=== PATIENT | female | born 1985 ===

== ENCOUNTER 2024-07-21 12:24 | Outpatient (CLI) | payer OTHER, SELFPAY ==
--- NOTE | ~2024-07-21 | XR_ITS ---
EXAM: XR knee LT 3V DATE: 07/21/2024 12:43 HISTORY: M25.562 - Pain in left knee . COMPARISON: None available. FINDINGS: Normal mineralization. No fracture or dislocation. No lytic or blastic lesion. Mild medial and lateral joint space narrowing. Mild tricompartmental osteophytosis. No erosion or periosteal patrice nge. Soft tissues within normal limits. IMPRESSION: Mild tricompartmental left knee osteoarthritis. Reviewed, dictated and finalized at location K. TABLE SPECKER
== END 2024-07-21 12:25 | disposition home or self-care (01) ==
LOC: GOSHIMG 12:28
PROVIDERS: PCP Nurse Practitioner Family; Visit Provider Nurse Practitioner Family
DX: M17.12 Unilateral primary osteoarthritis, left knee (principal); M25.562 Pain in left knee
CPT/HCPCS: 73562

== ENCOUNTER 2024-07-31 11:30 | Outpatient (CLI) | payer OTHER, SELFPAY ==
--- NOTE | ~2024-07-31 | MR_ITS ---
EXAMINATION: MR knee LT wo con DATE: 07/31/2024 12:05 INDICATION: Left lower leg injury TECHNIQUE: Magnetic resonance imaging (MRI) of the left knee was performed without intravenous contra st. Sequences included coronal PD-weighted FSE, coronal PD-weighted FS FSE, sagittal T2-weighted FSE , sagittal PD-weighted FS FSE and axial PD weighted fat saturated FSE. COMPARISON: None. FINDINGS: Medial compartment: Medial meniscus is normal. Shallow chondral surface regularity along the anterior weightbearing media l femoral condyle. Lateral compartment: Lateral meniscus is normal. Articular cartilage is normal. Patellofemoral compartment: Partial-thickness chondral ulceration and fissuring at the trochlea centered along the trochlear groo ve. Tiny focus of underlying edema-like signal change at the central aspect of the lateral trochlea. Mild partial-thickness chondral fissuring without degenerative subchondral changes at the patellar ap ical ridge. Ligaments and tendons: Anterior and posterior cruciate ligaments are normal. The medial collateral ligament and fibular dmitry ateral ligament complex are normal. The extensor mechanism is normal. The visualized medial and later al hamstring tendons as well as the iliotibial band are normal. Fluid: Physiologic amount of fluid in the joint space. No loose osteochondral bodies identified. Osseous/other: 7 mm lateral patellar subluxation. Alignment is otherwise normal. There is red marrow reexpansion in the metaphyseal and visualized diaphyseal regions of the distal femur, proximal tibia and fibula. No fracture or pathologic marrow replacing process. There is edema along the anterior margin of the rodriguez llar tendon without discrete bursal fluid collection potentially related to contusion given the histo ry of trauma. Simultaneous varicosity anterior to the knee. IMPRESSION: 1. 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 2. Normal menisci and stabilizing ligaments of the knee. Reviewed, dictated and finalized at location A. H [employer] SUPERVIS[employer] IMPRESSION: 1. Mild tricompartmental osteoarthritis with moderate to high-grade trochlear c hondral malacia and moderate grade chondral malacia along the patella and weigh tbearing portions of the medial and lateral femoral condyles. 2. Normal menisci and stabilizing ligaments of the knee.
== END 2024-07-31 11:31 | disposition home or self-care (01) ==
LOC: GOSHIMG 11:30
PROVIDERS: PCP Nurse Practitioner Family; Visit Provider Nurse Practitioner Family
DX: M17.12 Unilateral primary osteoarthritis, left knee (principal); M94.262 Chondromalacia, left knee
CPT/HCPCS: 73721

== ENCOUNTER 2024-08-14 17:39 | Emergency (ER) | payer OTHER, SELFPAY ==
--- NOTE | 2024-08-14 17:44 | ED.URI ---
HPI - URI/Sore Throat General Chief Complaint: Upper Respiratory Infection Stated Complaint: Cough,Congestion,headache,vomitting Time Seen by Provider: 08/14/24 17:55 Source: patient Mode of arrival: ambulatory Limitations: no limitations History of Present Illness HPI Narrative: Efren is a 38-year-old female patient presenting to the clinic today with complaints of cough, congestion, headache, body aches, nausea, vomiting. She reports symptoms started 3 days ago. Denies any fever or chills. Denies any shortness of breath. Does have some chest discomfort with cough. MD elicited complaint: sore throat and nasal congestion Related Data Allergies Allergy/AdvReac Type Severity Reaction Status Date / Time No Known Allergies Allergy Verified 08/14/24 17:49 Review of Systems Review of Systems: Pertinent positives per HPI. Patient denies any fever, chills, rash, headache, visual changes, dizziness, cough, shortness of breath, chest pain, palpitations, nausea, vomiting, diarrhea, constipation, abdominal pain, or any urinary issues. PMFSH Comments At the time of my signature, I reviewed and agree with the nursing past medical, surgical, social, and family history. There is no relevant family history pertinent to the patient complaint. Exam Narrative: General: Well-developed, morbidly obese, in no apparent distress Head: Normocephalic, atraumatic Eyes: Pupils equally round and reactive to light bilaterally, EOM intact, sclera and conjunctive clear, no discharge, lids normal Ears: TMs intact and clear, ear canals clear, no drainage, grossly hearing normal. Nose: Nares patent, clear discharge, no inflammation, no sinus tenderness. Mouth: Oral pharynx without lesions or masses, good dentition, MMM. Neck: Supple, trachea midline, no enlargement of anterior or posterior cervical nodes, no thyroid masses or goiter palpable. Cardio: Regular rate and rhythm, s1 and s2 normal, no murmur appreciated. Resp: Clear to auscultation bilaterally, no rhonchi, rales, wheezing or rubs Course Course Emergency Course: Portions of this record may have been created with voice recognition software. Level of Care: Express Care Visit Vital Signs Vital signs: Vital Signs Temperature 36.5 C 08/14/24 17:51 Pulse Rate 91 08/14/24 17:51 Respiratory Rate 18 08/14/24 17:51 Blood Pressure 147/78 H 08/14/24 17:51 Pulse Oximetry 100 08/14/24 17:51 Oxygen Delivery Room Air 08/14/24 17:51 Temperature 36.5 C 08/14/24 17:51 Pulse Rate 91 08/14/24 17:51 Respiratory Rate 18 08/14/24 17:51 Blood Pressure 147/78 H 08/14/24 17:51 Pulse Oximetry 100 08/14/24 17:51 Oxygen Delivery Room Air 08/14/24 17:51 Vital signs reviewed MDM - URI/Sore Throat MDM Narrative Medical decision making narrative: At the time of visit patient is resting comfortably on the exam table. Patient appears to be nontoxic. Labs: COVID and influenza testing was obtained. Influenza testing was positive for influenza A. COVID testing was negative. Plan: Patient has influenza A. Work note was given. Supportive measures were discussed with the patient and they voiced understanding discharge instructions and agrees to treatment plan. Return precautions reviewed Differential Diagnosis Differential diagnosis: Likely upper respiratory infection, otitis media, sinusitis, viral infection, bronchitis, influenza, pharyngitis and other (COVID) Discharge Plan Discharge Clinical Impression: Influenza A Patient Disposition: Home, Self-Care Condition: Stable Instructions: Antibiotic Form, Influenza (ED) Additional Instructions: Influenza a testing is positive in the clinic today May take DayQuil/NyQuil for cold/flu symptoms Increase fluids and stay well hydrated Tylenol/motrin for pain/fever Flonase and OTC antihistamines as directed Vicks vapor rub to open sinuses Sinus rinses for congestion Cepacol spray, cough drops, throat lozenges, warm tea with honey/lemon, gargle salt water to soothe throat BRAT diet for diarrhea Clear liquids x 24 hours then advance as tolerated for nausea/vomiting Go to the ED if you develop a worsening in your condition- high fever not controlled by Tylenol or Motrin, dehydration, weakness, lethargy, shortness of breath, or chest pain. Follow up with your PCP in 3-5 days if symptoms persist. Patient Language: Greenlandic Prescriptions: No Action methocarbamol 750 mg tablet 750 mg PO TID PRN (Reason: pain) Qty: 30 2RF Follow-up/Referrals: Nathaly Armstrong, [employer]OR-[facility] [Primary Care Provider] - Stand Alone Forms: Work/School Release IP Time of Disposition: 18:04 Quality NIHSS Nursing Documentation ED NIHSS nursing documentation: reviewed/agree
[2024-08-14 17:51] VITALS: BP 147/78; PULSE 91; RESP 18; TEMP 36.5; O2SAT 100
[2024-08-14 18:05] LABS: EDCOVIDSCREEN Negative (Negative); EDINFLUASCREEN Positive (Negative); EDINFLUBSCREEN Negative (Negative)
== END 2024-08-14 18:08 | disposition home or self-care (01) ==
PROVIDERS: Emergency Provider Nurse Practitioner Family; PCP Nurse Practitioner Family
DX: J10.1 Influenza due to other identified influenza virus with other respiratory manifestations (principal); Z20.822 Contact with and (suspected) exposure to COVID-19
CPT/HCPCS: 87426; 87804; 99212; G0463